=== PATIENT | female | born 1965 | race Caucasian/White ===

== ENCOUNTER → 2022-11-18 08:08 | Outpatient (BNVA) | payer OTHER, SELFPAY | PROVIDERS: PCP Internal Medicine; Visit Provider Nurse Practitioner Family | DX: Z13.89 Encounter for screening for other disorder (principal) ==

== ENCOUNTER 2023-11-22 10:48 | Outpatient (AMB) | payer OTHER, SELFPAY ==
--- NOTE | 2023-11-22 11:14 | MHC.OFFVIS ---
Intake Vital Signs 11/22/23 11:19 Height 4 ft 11 in Weight 138 lb 10.732 oz BMI 28.0 BP 118/72 Blood Pressure Location Rt brachial Position Sitting Pulse 83 Pulse Source Pulse Oximeter Temp 97.3 F Temp Source Skin Pulse Oximetry (%) 97 Oxygen Delivery Method Room Air Intake Visit Reasons: Fibromyalgia/cm Intake Note: Patient last seen 11/18/22 by Zulema, presents today for follow up. c/o samira hand pain. Would like to discuss tx options. Wet Pan Operator Required: Yes Wet Pan Operator Language: Track Template Maker Name: [id number] Information Interpreted: clinical only Accompanied by: Self / Same As Patient Allergies No Known Allergies Allergy (Verified 11/22/23 11:14) HPI HPI Comments History of Present Illness Details Ms. Guo 58 yoF returns for f/u of FM and OA. The patient has swelling to the IP joints and that it is painful to make a fist. It is hard to do daily tasks and she says her hands have been like that most of the times. She had seen the field instructor for her lower back pain and declined injections. She was instead prescribed prednisone. She has not taken the prednisone as yet and is waiting until the back pain to gets really, really bad . She also reports that her feet and her knees hurt all the time. She is managing her fibromyalgia symptoms with gabapentin 300 mg by mouth three times a day. She also takes nabumetone 750 mg by mouth twice a day. 11/2022 Elena: 57 year old female presents for initial visit for fibromyalgia and osteoarthritis, referred by PCP. Previously followed with Dr Whitt at [place]. Patient has diagnosis of fibromyalgia. She reports chronic head to toe pain, sleep disturbance and some depression. She admits to skin sensitivity. She is managing her fibromyalgia symptoms with gabapentin 300 mg by mouth three times a day. She also takes nabumetone 750 mg by mouth twice a day. She notices increased back and neck pain when she has increased stress. She is not currently exercising. She follows with Dr. Lovett for neck and low back injections. She states she was evaluated by Neurosurgery in the past and was told she does not need surgery. She continues to have chronic low back and neck pain. Her low back pain radiates down the left leg, she denies numbness or bladder involvement. She admits to intermittent joint swelling in her knees, and reports a heavy feeling in her knees at times. [facility] Medical History (Updated 11/22/23 @ 11:38 by COLE Zamudio) Bilateral hand swelling Joint pain in both hands Fibromyalgia Diabetes mellitus type 2 with neurological manifestations Bilateral carpal tunnel syndrome Essential hypertension Hyperlipidemia Degenerative disc disease, lumbar Lumbar herniated disc ROMULO positive Polyarthralgia Osteoarthritis of spine with radiculopathy, cervical region Surgical History H/O mammogram Family History Mother Arthritis Sister Arthritis Son Seizures Mental disorder Social History Alcohol intake: current Alcohol intake frequency: does not drink Patient Tobacco Use Status: Never used Tobacco Review of Systems Const All systems reviewed & are unremarkable except as noted in HPI and below Physical Exam Vital Signs: Last Vital Signs Temp 97.3 F 11/22/23 11:19 Pulse 83 11/22/23 11:19 BP 118/72 11/22/23 11:19 Pulse Ox 97 11/22/23 11:19 Oxygen Delivery Method Room Air 11/22/23 11:19 BMI result Body Mass Index 28.0 APPEARANCE: Patient in no acute distress, walks with a limp EYES: no redness, pupils equal and reactive to light, eyelids normal EARS: External ear normal, canal clear and tympanic membrane normal. NOSE/SINUS: Airflow through both nares, no nasal discharge, no bleeding THROAT: Oral mucosa moist, no ulcerations NECK: No thyromegaly or masses, no adenopathy, trachea midline. HEART: Regular rhythm, S1-S2 heard, no murmurs, rubs or gallops. LUNG: Clear to auscultation, respiratory rate regular nonlabored. ABD: Normal bowel sounds, abdomen soft, nontender. EXTREMITIES: No edema, no calf tenderness, normal peripheral pulses. NEURO: Oriented and alert x3. No focal weakness. SKIN: No inflammatory or neoplastic lesions. Normal color and turgor JOINT EXAM:?? Cervical Spine: Full range of motion without pain. Tenderness to palpation over the cervical spine and cervical spinal muscles. Thoracic Spine: No tenderness on palpation. Lumbar Spine:.? Alignment normal.? Pain with flexion and extension, tenderness to palpation of the lumbar spine. Hands:? Normal range of motion with pain tenderness, trace swelling but no increased warmth or erythema. Able to make a full fist with discomfort across the PIP joints and does not have good courier delivery driver strength. Wrists: Decreased range of motion with tenderness, but no swelling, increased warmth or erythema. Elbows: Normal pain-free range of motion with moderate tenderness, but no swelling, increased warmth or erythema. Shoulders:?? Full range of motion without pain. No tenderness, weakness, swelling, increased warmth or erythema. Hips:? Full range of motion without pain. Hip bursa:? No tenderness. Knees:? Normal pain-free range of motion with mild tenderness at joint lines but no swelling, increased warmth or erythema.? There is no effusion or crepitation Ankles: Normal pain-free range of motion without tenderness, swelling, increased warmth or erythema. Feet:? Normal pain-free range of motion without tenderness, swelling, increased warmth or erythema. Tender points:? Tenderness to digital palpation at the occiput, trapezius, second rib, lateral epicondyle, greater trochanter and gluteal area bilaterally. Results Reviewed Results Reviewed: [facility] 07/13/2022 Sed rate 8, BUN 11, creatinine 0.73, sodium 140, potassium 4.4, calcium 10.0, hemoglobin A1c 6.9, uric acid 3.6, Lyme disease antibody screen negative, rheumatoid factor <10.0, ROMULO negative. Random urine creatinine 133, microalbumin random 14.6, microalbumin creatinine ratio random 10.9 [facility] 12/04/2020 ROMULO 1:640 centromere, RF 17 CCP negative, anti double-stranded DNA 158 negative, CRP < 0.29 [facility] X-ray of forearm, right 03/26/2021 Impression: Unremarkable exam X-ray of right shoulder 03/26/2021 Impression: Calcific tendinitis/bursitis. Degenerative changes of the right AC joint. X-ray of cervical spine 03/26/2021 Impression: Spondylosis and neural foraminal narrowing. MRI of cervical spine without contrast 04/04/2021 Impression: Limited by motion artifact examination Abnormal cervical curvature probably due to muscle spasm. Multi bony and disc degenerative changes with right paramedian extrusion of the C5-C6 disc, ? compression of the anterior right aspect of the spinal cord at C4-5 and thumb see 5-C6 levels, stenosis of the lateral recess and neural foramina at multiple levels with compression of C5, C6, right C7 and C8 nerve roots. No focal signal abnormalities within the spinal cord. Pelvic and right hip x-ray 07/13/2022 Impression: No right hip abnormality detected. Degenerative changes in lumbar spine. Assessment & Plan Assessment & Plan (1) Degenerative disc disease, lumbar: Code(s): M51.36 - Other intervertebral disc degeneration, lumbar region (2) Osteoarthritis of spine with radiculopathy, cervical region: Code(s): M47.22 - Other spondylosis with radiculopathy, cervical region (3) ROMULO positive: Code(s): R76.8 - Other specified abnormal immunological findings in serum (4) Bilateral hand swelling: Code(s): M79.89 - Other specified soft tissue disorders (5) Joint pain in both hands: Code(s): M25.541 - Pain in joints of right hand; M25.542 - Pain in joints of left hand Plan #+ROMULO/Multiple Joint pain: Possibly inflammatory Arthritis with hand swelling and pain, knee pain and ankle pain on PE: She has a history of +ROMULO 1:680 - Will obtain updated labs and xrays, and prescribe a course of prednisone and reassess for improvement. #Lumbar DDD/Low Back Pain: Patient with continued low back pain. Will continue to follow with Dr. Lovett - she has refused any more injections. #FM: Previously managing her fibromyalgia symptoms with gabapentin which she found helpful. Advised patient to incorporate light daily activity as tolerated. Follow-up 4 weeka 40 minutes spent reviewing chart, evaluating patient and documenting. Orders: Orders XR hand LT min 3V Today M25.541 - Pain in joints of right hand, M25.542 - Pain in joints of left hand, M79.89 - Other specified soft tissue disorders Erythrocyte Sedimentation Rate Today M25.541 - Pain in joints of right hand, M25.542 - Pain in joints of left hand, M79.89 - Other specified soft tissue disorders, R76.8 - Other specified abnormal immunological findings in serum Anti DNA DS Antibody Today M25.541 - Pain in joints of right hand, M25.542 - Pain in joints of left hand, M79.89 - Other specified soft tissue disorders, R76.8 - Other specified abnormal immunological findings in serum Complement C4 Today M25.541 - Pain in joints of right hand, M25.542 - Pain in joints of left hand, M79.89 - Other specified soft tissue disorders, R76.8 - Other specified abnormal immunological findings in serum Creatine Kinase Total Today M25.541 - Pain in joints of right hand, M25.542 - Pain in joints of left hand, M79.89 - Other specified soft tissue disorders, R76.8 - Other specified abnormal immunological findings in serum Immunoglobulins,IgG IgA IgM Today M25.541 - Pain in joints of right hand, M25.542 - Pain in joints of left hand, M79.89 - Other specified soft tissue disorders, R76.8 - Other specified abnormal immunological findings in serum Protein Electrophoresis, Serum Today M25.541 - Pain in joints of right hand, M25.542 - Pain in joints of left hand, M79.89 - Other specified soft tissue disorders, R76.8 - Other specified abnormal immunological findings in serum Sjogren's Antibodies Today M25.541 - Pain in joints of right hand, M25.542 - Pain in joints of left hand, M79.89 - Other specified soft tissue disorders, R76.8 - Other specified abnormal immunological findings in serum Scleroderma 70 Antibody Today M25.541 - Pain in joints of right hand, M25.542 - Pain in joints of left hand, M79.89 - Other specified soft tissue disorders, R76.8 - Other specified abnormal immunological findings in serum UA w Microscopic Today M25.541 - Pain in joints of right hand, M25.542 - Pain in joints of left hand, M79.89 - Other specified soft tissue disorders, R76.8 - Other specified abnormal immunological findings in serum Vitamin D 25-OH (D2 and D3) Today M25.541 - Pain in joints of right hand, M25.542 - Pain in joints of left hand, M79.89 - Other specified soft tissue disorders, R76.8 - Other specified abnormal immunological findings in serum XR hand RT min 3V Today M25.541 - Pain in joints of right hand, M25.542 - Pain in joints of left hand, M79.89 - Other specified soft tissue disorders ROMULO Reflex Titer and Pattern Today M25.541 - Pain in joints of right hand, M25.542 - Pain in joints of left hand, M79.89 - Other specified soft tissue disorders, R76.8 - Other specified abnormal immunological findings in serum Anti Extractable Nuclear Ag Today M25.541 - Pain in joints of right hand, M25.542 - Pain in joints of left hand, M79.89 - Other specified soft tissue disorders, R76.8 - Other specified abnormal immunological findings in serum Anti-Centromere B Antibodies Today M25.541 - Pain in joints of right hand, M25.542 - Pain in joints of left hand, M79.89 - Other specified soft tissue disorders, R76.8 - Other specified abnormal immunological findings in serum Angiotensin Converting Enzyme Today M25.541 - Pain in joints of right hand, M25.542 - Pain in joints of left hand, M79.89 - Other specified soft tissue disorders, R76.8 - Other specified abnormal immunological findings in serum Complement C3 Today M25.541 - Pain in joints of right hand, M25.542 - Pain in joints of left hand, M79.89 - Other specified soft tissue disorders, R76.8 - Other specified abnormal immunological findings in serum Complete Blood Count Auto Diff Today M25.541 - Pain in joints of right hand, M25.542 - Pain in joints of left hand, M79.89 - Other specified soft tissue disorders, R76.8 - Other specified abnormal immunological findings in serum Comprehensive Met. Panel Today M25.541 - Pain in joints of right hand, M25.542 - Pain in joints of left hand, M79.89 - Other specified soft tissue disorders, R76.8 - Other specified abnormal immunological findings in serum C Reactive Protein Today M25.541 - Pain in joints of right hand, M25.542 - Pain in joints of left hand, M79.89 - Other specified soft tissue disorders, R76.8 - Other specified abnormal immunological findings in serum Hepatitis A,B,C Profile Today M25.541 - Pain in joints of right hand, M25.542 - Pain in joints of left hand, M79.89 - Other specified soft tissue disorders, R76.8 - Other specified abnormal immunological findings in serum Immunofixation Pnl, Serum Today M25.541 - Pain in joints of right hand, M25.542 - Pain in joints of left hand, M79.89 - Other specified soft tissue disorders, R76.8 - Other specified abnormal immunological findings in serum T Spot TB Today M25.541 - Pain in joints of right hand, M25.542 - Pain in joints of left hand, M79.89 - Other specified soft tissue disorders, R76.8 - Other specified abnormal immunological findings in serum Uric Acid Today M25.541 - Pain in joints of right hand, M25.542 - Pain in joints of left hand, M79.89 - Other specified soft tissue disorders, R76.8 - Other specified abnormal immunological findings in serum Cyclic Citrullinated Peptide Today M25.541 - Pain in joints of right hand, M25.542 - Pain in joints of left hand, M79.89 - Other specified soft tissue disorders, R76.8 - Other specified abnormal immunological findings in serum Rheumatoid Factor Today M25.541 - Pain in joints of right hand, M25.542 - Pain in joints of left hand, M79.89 - Other specified soft tissue disorders, R76.8 - Other specified abnormal immunological findings in serum HLA B27 Today M25.541 - Pain in joints of right hand, M25.542 - Pain in joints of left hand, M79.89 - Other specified soft tissue disorders, R76.8 - Other specified abnormal immunological findings in serum Medications: New prednisone orally daily; 3 tablets per day x 7 days 2 tablets x 7 days 1 tablets x 7 days stop 45 tabs 0RF M25.541 - Pain in joints of right hand, M25.542 - Pain in joints of left hand, M79.89 - Other specified soft tissue disorders Coding Level of Care Code Est Pt Level 4 (01454) Diagnoses Degenerative disc disease, lumbar M51.36 Osteoarthritis of spine with radiculopathy, cervical region M47.22 ROMULO positive R76.8 Bilateral hand swelling M79.89 Joint pain in both hands M25.541; M25.542
[2023-11-22 11:19] VITALS: BP 118/72; PULSE 83; TEMP 36.3; O2SAT 97; BMI 28.0
== END 2023-11-22 11:56 | disposition home or self-care (01) ==
PROVIDERS: PCP Internal Medicine; Visit Provider Nurse Practitioner Family
DX: M51.36 Other intervertebral disc degeneration, lumbar region (principal); M47.22 Other spondylosis with radiculopathy, cervical region; R76.8 Other specified abnormal immunological findings in serum; M79.89 Other specified soft tissue disorders; M25.541 Pain in joints of right hand; M25.542 Pain in joints of left hand
CPT/HCPCS: 99214

== ENCOUNTER → 2023-11-22 10:48 | Outpatient (BNVA) | payer OTHER, SELFPAY | PROVIDERS: PCP Internal Medicine; Visit Provider Nurse Practitioner Family ==

== ENCOUNTER 2023-12-23 08:49 | Outpatient (AMB) | payer OTHER, SELFPAY ==
--- NOTE | 2023-12-23 08:53 | A.OFFVIS_ITS ---
Vital Signs 12/23/23 08:59 Height 4 ft 11 in Weight 139 lb 1.787 oz BMI 28.1 BP 104/72 Blood Pressure Location Rt brachial Position Sitting Pulse 94 Pulse Source Pulse Oximeter Pulse Oximetry (%) 98 Oxygen Delivery Method Room Air Intake Visit Reasons: Hand Pain and Swelling/Prednisone Intake Note: Patient last seen 11/22/23, presents today for left hand pain and swelling follow up as well as test results. Instructional Interventionist Required: Yes Instructional Interventionist Language: Plastics Process Hand Name: Fifi,OLINDA/CJ and Judy Accompanied by: Self / Same As Patient Allergies No Known Allergies Allergy (Verified 12/23/23 08:59) HPI Comments Details: Ms. Brant Murphy yoF returns for f/u of FM and OA to hand with swelling status post prednisone course and to diagnostic results. At last visit the patient had swelling to the IP joints that was painful to make a fist. THe swelling did resolve with the Prednisone. She continue to manage her fibromyalgia symptoms with gabapentin 300 mg by mouth three times a day. She also takes nabumetone 750 mg by mouth twice a day. 11/22/2023: Chiquita Ms. Brant Murphy yoF returns for f/u of FM and OA. The patient has swelling to the IP joints and that it is painful to make a fist. It is hard to do daily tasks and she says her hands have been like that most of the times. She had seen the die drawing checker for her lower back pain and declined injections. She was instead prescribed prednisone. She has not taken the prednisone as yet and is waiting until the back pain to gets really, really bad . She also reports that her feet and her knees hurt all the time. She is managing her fibromyalgia symptoms with gabapentin 300 mg by mouth three times a day. She also takes nabumetone 750 mg by mouth twice a day. 11/2022 Elena: 57 year old female presents for initial visit for fibromyalgia and osteoarthritis, referred by PCP. Previously followed with Dr Whitt at [place]. Patient has diagnosis of fibromyalgia. She reports chronic head to toe pain, sleep disturbance and some depression. She admits to skin sensitivity. She is managing her fibromyalgia symptoms with gabapentin 300 mg by mouth three times a day. She also takes nabumetone 750 mg by mouth twice a day. She notices increased back and neck pain when she has increased stress. She is not currently exercising. She follows with Dr. Lovett for neck and low back injections. She states she was evaluated by Neurosurgery in the past and was told she does not need surgery. She continues to have chronic low back and neck pain. Her low back pain radiates down the left leg, she denies numbness or bladder involvement. She admits to intermittent joint swelling in her knees, and reports a heavy feeling in her knees at times. [facility] Medical History (Updated 11/22/23 @ 11:38 by HEIDI Zamudio) Bilateral hand swelling Joint pain in both hands Fibromyalgia Diabetes mellitus type 2 with neurological manifestations Bilateral carpal tunnel syndrome Essential hypertension Hyperlipidemia Degenerative disc disease, lumbar Lumbar herniated disc ROMULO positive Polyarthralgia Osteoarthritis of spine with radiculopathy, cervical region Surgical History H/O mammogram Family History Mother Arthritis Sister Arthritis Son Seizures Mental disorder Social History Alcohol intake: current Alcohol intake frequency: does not drink Patient Tobacco Use Status: Never used Tobacco Review of Systems Const All systems reviewed & are unremarkable except as noted in HPI and below Physical Exam Vital signs reviewed. Constitutional: Non-toxic appearing. No acute distress. Well-developed and well-nourished. Skin: Warm and dry. No rashes or lesions noted. Cardio: Regular rate and rhythm. No murmurs, gallops, or rubs. No lower extremity edema. No JVD. Pulmonary: No respiratory distress. No accessory muscle usage. Musculoskeletal: Normal range of motion in joints throughout the body. No deformity or other signs of injury. Hands:? Normal range of motion with stiffness when making a fist, trace swelling has resolved but no increased warmth or erythema. Able to make a full fist with discomfort across the PIP joints and does not have good life scientist strength. Neuro: Alert and oriented x4. Cranial nerves 2-12 grossly intact. No focal deficits appreciated. Assessment & Plan Assessment & Plan (1) Degenerative disc disease, lumbar: Code(s): M51.36 - Other intervertebral disc degeneration, lumbar region Category: Medical (2) Osteoarthritis of spine with radiculopathy, cervical region: Code(s): M47.22 - Other spondylosis with radiculopathy, cervical region Category: Medical (3) ROMULO positive: Code(s): R76.8 - Other specified abnormal immunological findings in serum Category: Medical (4) Bilateral hand swelling: Code(s): M79.89 - Other specified soft tissue disorders Category: Medical (5) Joint pain in both hands: Code(s): M25.541 - Pain in joints of right hand; M25.542 - Pain in joints of left hand Category: Medical Plan The hand swelling has resolved from the course of prednisone. She does continue with hand stiffness when she makes a fist but I have encouraged her to use play dough or stress balls to exercise her hands to increase range of motion. Her lab results were essentially unremarkable except for the ROMULO which remains positive 1:640 but ENAs are negative. The x-rays continues with mild osteoarthritis as seen on previous imaging. I encourage her to call for prednisone taper if the hand swelling recurrs and is bothersome. 10 minutes spent reviewing chart, evaluating patient and documenting. F/U 6 Coding Level of Care Code Est Pt Level 2 (04533) Diagnoses Degenerative disc disease, lumbar M51.36 Osteoarthritis of spine with radiculopathy, cervical region M47.22 ROMULO positive R76.8 Bilateral hand swelling M79.89 Joint pain in both hands M25.541; M25.542
[2023-12-23 08:59] VITALS: BP 104/72; PULSE 94; O2SAT 98; BMI 28.1
== END 2023-12-23 09:10 | disposition home or self-care (01) ==
PROVIDERS: PCP Internal Medicine; Visit Provider Nurse Practitioner Family
DX: M51.36 Other intervertebral disc degeneration, lumbar region (principal); M47.22 Other spondylosis with radiculopathy, cervical region; R76.8 Other specified abnormal immunological findings in serum; M79.89 Other specified soft tissue disorders; M25.541 Pain in joints of right hand; M25.542 Pain in joints of left hand
CPT/HCPCS: 99212

== ENCOUNTER → 2023-12-23 08:49 | Outpatient (BNVA) | payer OTHER, SELFPAY | PROVIDERS: PCP Internal Medicine; Visit Provider Nurse Practitioner Family ==

== ENCOUNTER 2025-07-01 09:03 | Day surgery (SDC) | payer OTHER, SELFPAY ==
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
[2025-06-27 09:27] VITALS: BMI 29.3
--- NOTE | 2025-06-27 11:05 | HO.ANESPROP2 ---
Documented by User: Liset Bautista NP 06/27/25 11:06 HPI - Anesthesia Eval Consult details Narrative: 59yo F for Left L4 Transforaminal Epidural Injection PMFSH Active Problems Active Problems: All Active Problems Lumbar radiculitis (Acute) ROMULO positive (Acute) Bilateral hand swelling (Acute) Joint pain in both hands (Acute) Osteoarthritis of spine with radiculopathy, cervical region (Acute) Degenerative disc disease, lumbar (Acute) Fibromyalgia (Acute) Past Medical History Medical History Bilateral hand swelling Joint pain in both hands Fibromyalgia Diabetes mellitus type 2 with neurological manifestations Bilateral carpal tunnel syndrome Essential hypertension Hyperlipidemia Degenerative disc disease, lumbar Lumbar herniated disc ROMULO positive Polyarthralgia Osteoarthritis of spine with radiculopathy, cervical region Family History Family History Mother Arthritis Sister Arthritis Son Seizures Mental disorder Surgical History Surgical History Hx of colonoscopy H/O mammogram Social History Social History (Updated 06/27/25 @ 09:30 by Renate Ahumada RN) Household Members: Spouse Housing: House Alcohol intake: current Alcohol intake frequency: does not drink Patient Tobacco Use Status: Never used Tobacco Use of substances other than those prescribed or required for medical reasons: No Are you DNR?: No Advance Directives: No Advance Directives Information Provided: No Advance Directives on File: No Meds Allergies Allergy/AdvReac Type Severity Reaction Status Date / Time No Known Allergies Allergy Verified 07/01/25 09:48 Home Medications ?Medication ?Instructions ?Recorded ?Confirmed ?Last Taken ?Type acetaminophen 650 mg 650 mg PO Q8H PRN pain 11/12/22 06/27/25 Unknown History tablet,extended release atorvastatin 10 mg tablet 10 mg PO DAILY 11/12/22 06/27/25 07/01/25 History lisinopril 10 mg tablet 10 mg PO DAILY 11/12/22 06/27/25 07/01/25 History metformin 500 mg tablet 500 mg PO DAILY 11/12/22 06/27/25 07/01/25 History nabumetone 750 mg tablet 750 mg PO BID PRN Pain 11/12/22 06/27/25 Unknown History aspirin 81 mg tablet,delayed 81 mg PO DAILY 06/27/25 06/27/25 06/29/25 History release Exam Height,Weight and Vital Signs: Height 4 ft 11 in Weight 65.771 kg Assessment and Plan Assessment Anesthesia Assessment: Chart Reviewed Documented by User: Imtiaz Rodriguez MD 07/01/25 11:01 [facility] Past Medical History Medical History Bilateral hand swelling Joint pain in both hands Fibromyalgia Diabetes mellitus type 2 with neurological manifestations Bilateral carpal tunnel syndrome Essential hypertension Hyperlipidemia Degenerative disc disease, lumbar Lumbar herniated disc ROMULO positive Polyarthralgia Osteoarthritis of spine with radiculopathy, cervical region Family History Family History Mother Arthritis Sister Arthritis Son Seizures Mental disorder Family history of problems with anesthesia: No Surgical History Surgical History Hx of colonoscopy H/O mammogram History of Problems with Anesthesia: No Social History Social History (Updated 06/27/25 @ 09:30 by Renate Ahumada RN) Household Members: Spouse Housing: House Alcohol intake: current Alcohol intake frequency: does not drink Patient Tobacco Use Status: Never used Tobacco Use of substances other than those prescribed or required for medical reasons: No Are you DNR?: No Advance Directives: No Advance Directives Information Provided: No Advance Directives on File: No Meds Allergies Allergy/AdvReac Type Severity Reaction Status Date / Time No Known Allergies Allergy Verified 07/01/25 09:48 Home Medications ?Medication ?Instructions ?Recorded ?Confirmed ?Last Taken ?Type acetaminophen 650 mg 650 mg PO Q8H PRN pain 11/12/22 06/27/25 Unknown History tablet,extended release atorvastatin 10 mg tablet 10 mg PO DAILY 11/12/22 06/27/25 07/01/25 History lisinopril 10 mg tablet 10 mg PO DAILY 11/12/22 06/27/2507/01/25 History metformin 500 mg tablet 500 mg PO DAILY 11/12/22 06/27/25 07/01/25 History nabumetone 750 mg tablet 750 mg PO BID PRN Pain 11/12/22 06/27/25 Unknown History aspirin 81 mg tablet,delayed 81 mg PO DAILY 06/27/25 06/27/25 06/29/25 History release Exam Airway Mallampati Class: III TM Dist: >3cm Neck ROM: Full Loose/Missing/Broken Teeth: No Heart: RRR Lungs: CTA Assessment and Plan Assessment Anesthesia Assessment: Anesthesia Plan Discussed Final Anesthetic Review Family History of Problems with Anesthesia: No History of Problems with Anesthesia: No NPO: Yes ASA Class: III Final Preanesthetic Review: No Changes in Pt Med Stat, Meds/Allgs Chart Reviewed, Consent Obtained/Reviewed and Anes Risks/Benef Reviewed Patient Risk: Low Procedure Risk: Low Anesthetic Plan Anesthetic Plan: MAC: Disposition: Standard PACU
--- NOTE | ~2025-07-01 | FL_ITS ---
EXAMINATION: FLUOROSCOPY GUIDANCE FOR NEEDLE PLACEMENT CLINICAL INFORMATION: L4 TFESI, LEFT COMPARISON: None available. TECHNIQUE: Fluoroscopy guidance was provided during left L4 MELISSA injection. FINDINGS: A single image was obtained revealing opacification of left epidural space at T4-5 and T5-6 disc level. FLUOROSCOPY TIME: 13 seconds DOSE AREA PRODUCT: 51.85 uGy-m2 (microgray-meter squared) FL/FL guidance in OR IMPRESSION: Fluoroscopy guidance was provided to referring physician for thoracic MELISSA. Electronically signed by: Vin Gonzales MD 07/01/2025 03:36 PM FLY
[2025-07-01 09:48] VITALS: BMI 29.3
[2025-07-01] MEDS: Lactated Ringers 1,000 ML 100 ML IVCONT (10:04)
[2025-07-01 10:13] LABS: Glucose, Whole Blood 104 mg/dL (60-115)
--- NOTE | 2025-07-01 10:13 | MHC.SHP ---
Pre-Procedural Eval Section A - 24 Hr Update-Section A only Date of Service: 07/01/25 The patient is an INPATIENT: No Section B - Complete if H&P > 30 days Chief Complaint: Radiculopathy, lumbar region Details of Present Illness: Lower back pain and lumbar radiculitis Relevant Family History (Specify if Yes): No Relevant Social History: None Present Medications: see Short Stay Collaborative assessment Medical History: No relevant PMH History of Previous Operations: No relevant previous surgery Allergies: Allergies Allergy/AdvReac Type Severity Reaction Status Date / Time No Known Allergies Allergy Verified 07/01/25 09:48 Review of Systems Sugical H&P ROS: Negative: Constitution, Cardiovascular, Respiratory, Neurological, Psychiatric, Hem-Onc, Allergic/Immunologic, Gastrointestinal, Genitourinary, Musculoskeletal, Integumentary, Endocrine and Eyes/Ears/Nose/Throat Exam Surgical H&P Exam: Normal: HEENT, Normal: Heart, Normal: Lungs, Normal: Extremities, Normal: Abdomen, Normal: Skin and Normal: Neurological Plan Diagnosis/Plan: Unchanged I have reviewed the history and physical and performed a pertinent physical examination on my patient. No changes have occurred unless specified. Time Spent With Patient Time: Total time managing care of this patient today ____ minutes.
--- NOTE | 2025-07-01 10:14 | W.PM.OPN ---
Operative Note Operative Note Date of Service: 07/01/25 Narrative: Procedure performed: Left L4 transforaminal epidural steroid injection Preop diagnosis: Lumbar radiculitis Postop diagnosis: The same Anesthesia: Mac After informed consent was obtained, patient was placed on the procedure table in a prone position. Skin over lumbosacral area was prepped and draped in usual sterile manner. Left L4 pedicle was visualized utilizing fluoroscopy. 3.5 inch 22 gauge spinal needle was introduced percutaneously and advanced towards the pedicle at about 6 o'clock position. Once level of neural foramina was reached, needle placement was verified utilizing 3 cc of Omnipaque contrast solution. Excellent flow through the neural foramina and epidural spread was identified without evidence of vascular uptake. Total volume of 6 cc containing 2 cc of 1% lidocaine, 40 mg of triamcinolone and normal saline solution were injected after negative aspiration for blood and cerebrospinal fluid. Radiation exposure was documented in the chart.
[2025-07-01 10:21] VITALS: BP 136/78; PULSE 84; RESP 18; TEMP 36.6; O2SAT 98
[2025-07-01 11:28] VITALS: BP 124/57; PULSE 86; RESP 20; TEMP 36.8; O2SAT 95
[2025-07-01 11:47] VITALS: BP 132/86; PULSE 87; RESP 12; TEMP 36.2; O2SAT 98
== END 2025-07-01 13:06 | disposition home or self-care (01) ==
PROVIDERS: PCP Internal Medicine; Visit Provider Physical Medicine & Rehabilitation
PROC: (CPT 64483; principal; 2025-07-01 10:00)
DX: M54.16 Radiculopathy, lumbar region (principal); M06.9 Rheumatoid arthritis, unspecified; E11.9 Type 2 diabetes mellitus without complications; Z79.82 Long term (current) use of aspirin; Z79.84 Long term (current) use of oral hypoglycemic drugs; Z79.899 Other long term (current) drug therapy
CPT/HCPCS: 64483; 82947; J2003; J2250; J2704; J3301; Q9967

== ENCOUNTER → 2025-07-01 09:03 | Outpatient (BNV) | payer OTHER, SELFPAY | PROVIDERS: PCP Internal Medicine; Visit Provider Physical Medicine & Rehabilitation | DX: M54.16 Radiculopathy, lumbar region (principal) | CPT/HCPCS: 64483 ==

== ENCOUNTER 2025-07-31 09:12 | Outpatient (AMB) | payer OTHER, SELFPAY ==
[2025-07-31 09:18] VITALS: BMI 29.3
--- NOTE | 2025-07-31 09:18 | A.PHYSOV ---
Vital Signs 07/31/25 09:18 Height 4 ft 11 in Weight 145 lb BMI 29.3 Intake Visit Reasons: F/U after injection 07/01/2025 Intake Note: Patient is a 59 year old female in office today for a follow up after Left L4 transforaminal epidural steroid injection 07/01/25 V Belt Curer Required: Yes V Belt Curer Name: nick mejia [id number] Allergies No Known Allergies Allergy (Verified 07/31/25 09:18) HPI Comments Details: History of Present Illness The patient is a 59-year-old female presenting for management of chronic pain, primarily persistent low back pain with left lumbar radiculitis. Her last visit was on April 17, 2025. She reports her back pain is intermittent and is exacerbated by her daily activities, which include caring for her disabled child, preventing her from resting adequately. The patient is status post a left L4 transforaminal epidural steroid injection on July 01, 2025, which she states provided only short-term relief. She has received this type of nerve block injection on several previous occasions with similar limited duration of benefit. A lumbar spine MRI from October 13, 2023, showed right L5-S1 neural foraminal stenosis with compression of the right L5 nerve root and an interval decrease in L3-L4 central spinal canal stenosis compared to a prior study from February 26, 2022. She also has a history of right shoulder pain, which is worse with overhead activities. She received a right shoulder subacromial injection on April 17, 2025, and reports this has been significantly more effective than her back injections. Additionally, she has a history of neck pain, and a cervical spine MRI from March 27, 2021, was consistent with multilevel right-sided moderate to severe neural foraminal stenosis. The patient has a diagnosis of fibromyalgia and notes that stress can cause significant muscle tension that begins in her neck and radiates to her back. She intermittently uses a back brace for support, which she finds relaxing. Services of professional coupon collection clerk were utilized during today's appointment. Pain Description - Location: The patient reports pain in the lower back, which she describes as a stabbing pain, with radiation down the left leg when the pain is more severe. - Associated Symptoms: She also complains of neck pain and right shoulder pain. - Frequency: The pain is intermittent but can occur daily, depending on her activity level. - Exacerbating Factors: Pain is worsened by lifting heavy objects, such as groceries, and by the motion of standing up from a seated position, during which she sometimes needs to hold onto something to take a step. - Relieving Factors: The patient finds some relief and relaxation from using a back brace. - Other Factors: Stress is noted to increase muscle tension, which starts in her neck and radiates down her back. Results - Lumbar Spine MRI (10/13/2023): Consistent with right L5-S1 neural foraminal stenosis with compression of the right L5 nerve root; interval decrease of the L3-L4 central spinal canal stenosis compared to MRI from 02/26/2022. - Cervical Spine X-ray (05/29/2024): Completed, results not detailed. - Cervical Spine MRI (03/27/2021): Consistent with multilevel right-sided moderate to severe neural foraminal stenosis. [facility] Medical History (Updated 07/31/25 @ 12:24 by Ulices Desouza DO) Sacroiliac inflammation Sacroiliac dysfunction Bilateral hand swelling Joint pain in both hands Fibromyalgia Diabetes mellitus type 2 with neurological manifestations Bilateral carpal tunnel syndrome Essential hypertension Hyperlipidemia Degenerative disc disease, lumbar Lumbar herniated disc ROMULO positive Polyarthralgia Osteoarthritis of spine with radiculopathy, cervical region Surgical History Hx of colonoscopy H/O mammogram Family History Mother Arthritis Sister Arthritis Son Seizures Mental disorder Social History Household Members: Spouse Housing: House Alcohol intake: current Alcohol intake frequency: does not drink Patient Tobacco Use Status: Never used Tobacco Review of Systems Narrative Review of Systems - Musculoskeletal: Reports intermittent lower back pain, neck pain, and right shoulder pain with overhead activities. - Neurological: Reports pain radiating down the left leg. - Psychiatric: Reports stress that leads to increased muscle tension and pressure in the neck and back. Physical Exam Exam Exam: Physical Exam - General: The patient is alert and cooperative. - Musculoskeletal: The patient can stand and sit. - Musculoskeletal: She localizes her pain to the low back region with focal tenderness. - Musculoskeletal: Examination did not elicit pain in the back or knee. Pain with palpation over left SI sulcus. Positive SI compression test, Danese and fabere signs on the left. Patient ambulates without antalgia. Neurological examination was nonfocal. She demonstrated no upper motor neuron signs. Vital Signs: BMI result Body Mass Index 29.3 Assessment & Plan Assessment & Plan (1) Degenerative disc disease, lumbar: Comment: hx epidural injection Code(s): M51.36 - Other intervertebral disc degeneration, lumbar region Category: Medical Qualifiers: Disc-related pain type: discogenic back pain and lower extremity pain Qualified Code(s): M51.362 - Other intervertebral disc degeneration, lumbar region with discogenic back pain and lower extremity pain (2) Fibromyalgia: Code(s): M79.7 - Fibromyalgia Category: Medical (3) Lumbar radiculitis: Code(s): M54.16 - Radiculopathy, lumbar region Category: Medical (4) Sacroiliac dysfunction: Code(s): M53.3 - Sacrococcygeal disorders, not elsewhere classified Category: Medical (5) Sacroiliac inflammation: Code(s): M46.1 - Sacroiliitis, not elsewhere classified Category: Medical Plan Pain Management - Affect: The patient reports stress significantly contributes to her pain, causing muscle tension starting in the neck and radiating down the back. - Analgesia: She notes that prior left L4 transforaminal epidural steroid injections (nerve blocks) provided only short-term relief from her back pain. - Analgesia: A right shoulder subacromial injection has provided much more significant and lasting relief for her shoulder pain. - Analgesia: She uses a back brace for support and finds it helps her relax. 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 - Activities of Daily Living: Pain interferes with transitional movements, such as standing up from a seated position, and is worsened by lifting heavy items. Plan Patient was informed and verbally consented to the use of an ambient scribe for clinic note documentation during this visit. 1. Low Back Pain With Left Radiculopathy The patient's persistent low back pain radiating to the left leg has shown limited, short-term response to prior left L4 transforaminal epidural injections. Her symptoms are significantly exacerbated by her physical demands as a caregiver, which prevents adequate rest. Given her presentation and the ineffectiveness of epidural injections, an alternative approach targeting the sacroiliac joint was discussed. Plan to proceed with a left sacroiliac (SI) joint injection. The patient agreed to this procedure. The injection will be performed under sedation at [facility] and will be scheduled after the New Year. If this is unsuccessful, a referral to a pain management nurse practitioner for consideration of advanced therapies, such as a spinal cord stimulator, was also discussed as a future option. 2. Right Shoulder Pain The patient reports her right shoulder pain is well-controlled following a subacromial injection in April 2025, stating it has helped more than her back injections. No acute intervention is required at this time. 3. Cervicalgia The patient has a history of neck pain with an MRI from 2020 showing multilevel right-sided foraminal stenosis. She reports that stress exacerbates her neck symptoms, causing muscle tension that radiates to her back, possibly related to her fibromyalgia. The current focus is on her lumbar symptoms, and no new plan for her cervicalgia was initiated during this visit. Risks and benefits of the procedure were discussed with the patient. Potential alternative measures were also discussed. Patient understands that the procedure is completely elective. Potential side effects associated with injectable medications were discussed. All questions were answered to the patient's satisfaction. Discussion Notes I discussed with the patient that given her significant physical responsibilities as a caregiver, it is unlikely that any single procedure will render her completely pain-free. We reviewed that the prior epidural/nerve block injections provided only short-term relief, which is not an uncommon outcome. I proposed a different type of procedure, a left sacroiliac (SI) joint injection, as an alternative approach to her low back pain. I informed her that while we can try this, I cannot guarantee the extent or duration of potential relief. I also mentioned that if injections continue to provide minimal benefit, a future referral to a pain management group for consideration of more advanced therapies, such as a spinal cord stimulator implant, is an option. The patient consented to proceed with the left SI joint injection. I explained that because the procedure requires sedation, it will be scheduled at [facility]. I informed her that due to my upcoming two-week absence, the procedure will be scheduled shortly after the New , and we will call her to arrange the appointment. Patient Instructions - We will schedule you for a left sacroiliac (SI) joint injection to help with your low back pain. - This procedure requires sedation, so it will be performed at the hospital in [place]. - The procedure will be scheduled after the New Year. - Our office will call you to arrange the appointment date and time. - Continue using your back brace as needed for support and comfort. - If injections do not provide lasting relief, we can discuss referring you to a specialist for other treatments, like a spinal cord stimulator. Orders: Referrals Physiatry Procedure Notification M46.1 - Sacroiliitis, not elsewhere classified, M51.36 - Other intervertebral disc degeneration, lumbar region, M53.3 - Sacrococcygeal disorders, not elsewhere classified, M54.16 - Radiculopathy, lumbar region, M79.7 - Fibromyalgia Coding Level of Care Code Est Pt Level 4 (58350) Add On Problem Visit Only Diagnoses Degeneration of intervertebral disc of lumbar region with discogenic back pain and lower extremity pain M51.362 Disc-related pain type: discogenic back pain and lower extremity pain Fibromyalgia M79.7 Lumbar radiculitis M54.16 Sacroiliac dysfunction M53.3 Sacroiliac inflammation M46.1
--- OUTSIDE RECORDS SUMMARY | 2025-07-31 10:08 | XMS_ITS | Clinical Summary ---
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 For example, children librarian or elderly care for an older adult? [...] on file Sexual Orientation Not on file Last Filed Vital Signs Vital Sign Reading [...] 01/15/2025 11:20 AM EDT Plan of Treatment Health Maintenance Due Date Last Done Comments Zoster Vaccines (2 of 2) 06/06/2019 04/11/2019 Pneumococcal Vaccine: 50+ Years (3 of 3 - PCV20 or PCV21) 05/05/2021 05/05/2016, 09/25/2007 HIV Screening 07/13/2022 Diabetes: Annual Foot Exam 10/23/2024 10/24/2023 COVID-19 Vaccine ( season) 2025 07/27/2021, 11/11/2020, 10/14/2020 Influenza Vaccine (#1) 2025 , 07/12/2022, 05/28/2021, Additional history exists Social Influencers of Health Screening 08/29/2025 08/29/2024 Breast Cancer Screening 09/02/2025 09/02/2023 Diabetes: Blood Sugar Control Test (HGBA1C) 01/05/2026 07/08/2025, 01/17/2025, 08/29/2024, Additional history exists Diabetes: Annual Retina Eye Exam 02/22/2026 02/22/2025, 02/20/2024 DTaP,Tdap,and Td Vaccines (3 - Td or Tdap) 05/05/2026 05/05/2016, 01/21/2006 Diabetes: Annual Urine Albumin-Creatinine Ratio (uACR) 07/08/2026 07/08/2025, 08/29/2024, 10/24/2023 Diabetes: Annual GFR (Glomerular Filtration Rate) 07/08/2026 07/08/2025, 08/29/2024, 05/24/2024 Hypertension/CHF/CAD Annual BMP Blood Test 07/08/2026 07/08/2025, 08/29/2024, 05/24/2024 Cervical Cancer Screening: HPV 01/25/2027 01/25/2022 Colorectal Cancer Screening: FIT-DNA (Cologuard) 04/29/2028 04/29/2025, 04/23/2025, 04/23/2025, Additional history exists Cholesterol Screening (Lipid Panel) 07/08/2030 07/08/2025, 08/29/2024, 10/24/2023 RSV Immunization Adult Patients (1 [...] Procedure Name Priority Date/Time Associated Diagnosis Comments COMPREHENSIVE METABOLIC PANEL Routine 07/08/2025 9:03 AM EST Diabetes mellitus type 2 with neurological manifestations (CMS/HCC V24, CMS/HCC V28) Essential hypertension HEMOGLOBIN A1C Routine 07/08/2025 9:03 AM EST Diabetes mellitus type 2 with neurological manifestations (CMS/HCC V24, CMS/HCC V28) Essential hypertension LIPID PANEL WITH REFLEX TO DIRECT LDL Routine 07/08/2025 9:03 AM EST Diabetes mellitus type 2 with neurological manifestations (CMS/HCC V24, CMS/HCC V28) Essential hypertension MICROALBUMIN CREATININE URINE RATIO Routine 07/08/2025 9:03 AM EST Diabetes mellitus type 2 with neurological manifestations (CMS/HCC V24, CMS/HCC V28) Essential hypertension LAB COLOGUARD COLON CANCER SCREEN Routine 04/29/2025 9:10 AM EDT EXTERNAL DIABETIC RETINA EYE EXAM Routine 02/22/2025 1:23 PM EDT from Last 3 Months or Most Recently Relevant to Health Maintenance Results * Lipid panel with reflex to direct LDL (07/08/2025 9:03 AM EST) Cholesterol 182 0 - 200 mg/dL 07/08/2025 3:04 PM [facility] Triglycerides 80 0 - 150 mg/dL 07/08/2025 3:04 PM [facility] HDL 96 >=40 mg/dL 07/08/2025 3:04 PM [facility] LDL Calculated 70 0 - 100 mg/dL 07/08/2025 3:04 PM [facility] Comment:Estimated LDL Calcul ated using equation: Total cholesterol - HDL cholesterol - (Triglycerides/5) VLDL Cholesterol Axel 16 mg/dL 07/08/2025 3:04 PM [facility] Non HDL Chol. (LDL+VLDL) 86 <145 mg/dL 07/08/2025 3:04 PM [facility] Chol/HDL Ratio 1.9 0.0 - 4.4 07/08/2025 3:04 PM [facility] Blood Venous blood specimen / Unknown Venipuncture / Unknown 07/08/2025 9:03 AM EST 07/08/2025 9:03 AM EST us Fanta Knight MD LAB BLOOD ORDERABL ES Final Result [facility] [address] [place] [address], [place] [phone] * Microalbumin creatinine urine ratio (07/08/2025 9:03 AM EST) Creatinine, Urine 107.0 mg/dL 07/08/2025 2:11 PM [facility] Microalb, Ur 7.0 0.0 - 29.0 mg/L 07/08/2025 2:11 PM [facility] Microalb/Creat Ratio 7 <30 mg/g creat 07/08/2025 2:11 PM [facility] Urine Urine specimen obtained by clean catch procedure / Unknown Non-blood Collection / Unknown 07/08/2025 9:03 AM EST 07/08/2025 9:03 AM EST Fanta Knight MD LAB URINE ORDERABL ES Final Result Performing Organization Address [facility]/ZIP Co de Phone Number [facility] [address] [place] [address], [place] [phone] * (ABNORMAL) Hemoglobin A1c (07/08/2025 9:03 AM EST) [facility] Hemoglobin A1C 7.5(H) <6.5 % LAB CHEMISTRY METHOD 07/08/2025 2:54 PM [facility] Mean Bld Glu Estim. 169 mg/dL LAB CHEMISTRY METHOD 07/08/2025 2:54 PM [facility] Blood Venous blood specimen / Unknown Venipuncture / Unknown 07/08/2025 9:03 AM EST 07/08/2025 9:03 AM EST Fanta Knight MD LAB BLOOD ORDERABL ES Final Result [facility] [address] [place] [address], [place] [phone] * (ABNORMAL) Comprehensive metabolic panel (07/08/2025 9:03 AM EST) Sodium 141 133 - 145 mmol/L 07/08/2025 4:13 PM [facility] Potassium 4.3 3.5 - 5.5 mmol/L 07/08/2025 4:13 PM [facility] Chloride 102 96 - 110 mmol/L 07/08/2025 4:13 PM [facility] CO2 26 21 - 32 mmol/L 07/08/2025 4:13 PM [facility] Anion Gap 13(H) 3 - 11 07/08/2025 4:13 PM [facility] Glucose 107(H) 70 - 100 mg/dL 07/08/2025 4:13 PM [facility] BUN 13 5 - 25 mg/dL 07/08/2025 4:13 PM [facility] Creatinine 0.76 0.50 - 1.10 mg/dL 07/08/2025 4:13 PM [facility] eGFR 90 >=60 mL/min/1. 73m2 07/08/2025 4:13 PM [facility] Comment:Calculation based on the Chronic Kidney Disease Epidemiology Collaboration (CKD-EPI) equation refit without adjustment for race. BUN/Creatinine Ratio 17.1 07/08/2025 4:13 PM [facility] Calcium 9.5 8.5 - 10.5 mg/dL 07/08/2025 4:13 PM [facility] AST (SGOT) 23 10 - 42 unit/L 07/08/2025 4:13 PM [facility] ALT (SGPT) 40 10 - 60 unit/L 07/08/2025 4:13 PM [facility] Alkaline Phosphatase 158(H) 42 - 121 unit/L 07/08/2025 4:13 PM [facility] Total Protein 8.1(H) 6.0 - 8.0 g/dL 07/08/2025 4:13 PM EST [facility] Albumin 4.5 3.2 - 5.0 g/dL 07/08/2025 4:13 PM EST [facility] Total Bilirubin 0.9 0.0 - 1.4 mg/dL 07/08/2025 4:13 PM [facility] Blood Venous blood specimen / Unknown Venipuncture / Unknown 07/08/2025 9:03 AM EST 07/08/2025 9:03 AM EST us Fanta Knight MD LAB BLOOD ORDERABL ES Final Result [facility]) [facility] [address] [place] [address], * Cologuard?? colon cancer screening (04/29/2025 9:10 AM EDT) Historical Provider LAB MOLECULAR DIAGNOSTICS ORDERABLES Final Result * External Diabetic Retina Eye Exam Report (02/22/2025 1:23 PM EDT) Anatomical Region Laterality Modality Ultrasound Historical Provider IMG US PROCEDURES Final R esult from Last 3 Months or Most Recently Relevant to Health Maintenance [place] [id number] Advance Directives Documents on File Type Date Recorded Patient Car Wrecker Expl anation Health Care Decision (hx) 05/03/2014 FARSHAD GARCIA DIRECTIVE Care Teams Tightener Relationship Specialty Start Date End Date Fanta Knight MD [address] [place] [phone] PCP - General Internal Medicine 03/15/22
== END 2025-07-31 09:55 | disposition home or self-care (01) ==
LOC: HO.HPHYS 09:12
PROVIDERS: PCP Internal Medicine; Visit Provider Physical Medicine & Rehabilitation
DX: M51.362 Other intervertebral disc degeneration, lumbar region with discogenic back pain and lower extremity pain (principal); M79.7 Fibromyalgia; M54.16 Radiculopathy, lumbar region; M53.3 Sacrococcygeal disorders, not elsewhere classified; M46.1 Sacroiliitis, not elsewhere classified
CPT/HCPCS: 99214